=== PATIENT | female | born 1960 | race Two or more races ===

== ENCOUNTER 2017-02-06 01:43 | Emergency (ER) | payer OTHER ==
[~2017-02-06] VITALS: Ht 160 cm; Wt 78.5 kg
--- NOTE | ~2017-02-06 | CR229 ---
[facility] A Service of [facility] RADIOLOGY TEXT RESULTS PATIENT: TERESA HERNANDEZ LOCATION: [facility] : 56 UNIT #: [id number] AGE: [address]: Jose A Tamayo MD SEX: F ORDER DR: [id number] [facility] [address] [place], [place] [address] [id number] E MR#: [id number] Acc #: [id number] NAME: TERESA HERNANDEZ : 1960 SEX: F STUDY DATE/TIME: 02/06/2017 04:51 UNIT: [facility] ROOM: STUDY DESCRIPTION: CR Shoulder Min 2 View Lt Attending Physician: Milton Tamayo M.D. Ordering Physician: Milton Tamayo M.D. Primary Care Physician: Lizbeth Cooley M.D. MEDICAL IMAGING REPORT This report is preliminary unless electronic signature is present EXAM Left shoulder 02/06 at 0451. INDICATIONS Left shoulder pain for 2 days. No trauma. FINDINGS Three views of the left shoulder were obtained. There is no fracture or dislocation. There is no AC joint separation. IMPRESSION Negative left shoulder. Dictated by... Axel Barajas Jr., M.D. THIS IS AN ELECTRONICALLY VERIFIED REPORT Axel Barajas Jr., M.D. at 02/06/2017 9:41 PM EZEQUIEL/dario TD: 02/06/2017 10:24 JOB #: [id number] MEDICAL IMAGING REPORT Page 1 of 1 COPY
[~2017-02-06 01:43] MED LIST: ACETAMINOPHEN PO; ASPIRIN81 MG PO; BAYER ASPIRIN325 M1 PO; GLIPIZIDE5 MG/BOTTL PO; GLUCOTROL XL PO; GLUCOTROL10 MG PO; HYDROCODONE-APA1 T58 PO; JENTADUETO 2.51 EAC2 PO; LANTUS100 U/M1 SQ; LEVEMIR SUBQ; LOPRESSOR PO; MELOXICAM15 MG PO; METFORMIN HCL1000 M1 PO; METFORMIN HCL500 M1 PO; METOPROLOL SUCC25 MG PO; OMEPRAZOLE20 M1 PO; OMEPRAZOLE40 MG PO; PEPCID PO; PRILOSEC40 MG PO; VITAL-D RX TABL1 TAB PO; ZESTRIL5 MG PO
== END 2017-02-06 05:50 | disposition home or self-care (01) ==
LOC: CED 01:43
DX: M25.512 Pain in left shoulder (principal); E11.9 Type 2 diabetes mellitus without complications; I10 Essential (primary) hypertension; Z90.49 Acquired absence of other specified parts of digestive tract; Z79.899 Other long term (current) drug therapy; Z79.82 Long term (current) use of aspirin
CPT/HCPCS: 73030; 99283